=== PATIENT | male | born 1960 | race Caucasian/White ===

== ENCOUNTER 2020-02-08 08:23 | Outpatient (CLI) | payer OTHER, SELFPAY ==
[2020-02-08 09:16] LABS: Alanine Aminotransferase 25 U/L (4-50); Albumin Level 4.3 g/dL (3.5-5.1); Alkaline Phosphatase 39 U/L (38-126); Anion Gap 7 mmol/L (8-16); Aspartate Amino Transferase 23 U/L (17-59); Bilirubin,Total 1.2 mg/dL (0.2-1.3); Blood Urea Nitrogen 15 mg/dL (9-20); Calcium 9.1 mg/dL (8.4-10.2); Carbon Dioxide 27 mmol/L (22-30); Chloride 104 mmol/L (98-107); Cholesterol 169 mg/dL (0-200); Estimated Glomerular Filt Rate > 60; Glucose 106 mg/dL (75-110); HDL Direct 56 mg/dL; Potassium 4.5 mmol/L (3.4-5.0); Sodium 138 mmol/L (137-145); Triglycerides 139 mg/dL (<150)
[2020-02-08 09:28] LABS: LDL Cholesterol Direct 99 mg/dL
[2020-02-08 09:46] LABS: Prostate Specific Antigen 0.7 ng/mL (< OR = 4.0)
== END 2020-02-08 08:24 | disposition home or self-care (01) ==
LOC: ANHLAB 08:25
PROVIDERS: PCP Emergency Medicine; Visit Provider Emergency Medicine
DX: E78.5 Hyperlipidemia, unspecified (principal); Z12.5 Encounter for screening for malignant neoplasm of prostate
CPT/HCPCS: 36415; 80053; 80061; 84153

== ENCOUNTER 2020-08-08 08:08 | Outpatient (CLI) | payer OTHER, SELFPAY ==
[2020-08-08 08:41] LABS: Alanine Aminotransferase 21 U/L (4-50); Albumin Level 4.2 g/dL (3.5-5.1); Alkaline Phosphatase 38 U/L (38-126); Anion Gap 5 mmol/L (8-16); Aspartate Amino Transferase 26 U/L (17-59); Bilirubin,Total 1.5 mg/dL (0.2-1.3); Blood Urea Nitrogen 16 mg/dL (9-20); Carbon Dioxide 28 mmol/L (22-30); Chloride 106 mmol/L (98-107); Cholesterol 147 mg/dL (0-200); Estimated Glomerular Filt Rate > 60; Glucose 94 mg/dL (75-110); HDL Direct 49 mg/dL; Potassium 3.8 mmol/L (3.4-5.0); Sodium 139 mmol/L (137-145); Triglycerides 56 mg/dL (<150)
[2020-08-08 08:52] LABS: LDL Cholesterol Direct 80 mg/dL
== END 2020-08-08 08:09 | disposition home or self-care (01) ==
PROVIDERS: PCP Emergency Medicine; Visit Provider Emergency Medicine
DX: E78.5 Hyperlipidemia, unspecified (principal)
CPT/HCPCS: 36415; 80053; 80061

== ENCOUNTER 2022-08-20 01:49 | Day surgery (SDC) | payer OTHER, SELFPAY ==
[2022-08-09 14:47] VITALS: BMI 30.5
--- NOTE | 2022-08-20 09:06 | P.PNAN_ITS ---
Anes - Initial Pre Proc Eval Procedure: Operation Date: 08/20/22 10:30 Proposed Procedures p Screening Colonoscopy - Austin Chiu MD Date/Time: 08/20/22 09:06 Surgeon: Austin Chiu MD Pre Op Diagnosis: Neoplasm screening Patient Data Age: 62 Gender: M Height: 1.85 m Weight: 105 kg Allergies Allergy/AdvReac Type Severity Reaction Status Date / Time No Known Allergies Allergy Mild Verified 08/20/22 09:48 Home Medications Medication Instructions Recorded Confirmed Type losartan 50 mg tablet 50 mg PO DAILY #90 tabs 06/25/22 08/09/22 Rx fluticasone propionate 50 1 spray intranasal BID #16 grams 08/13/22 08/20/22 Rx mcg/actuation nasal spray,suspension (Flonase Allergy Relief) methylprednisolone 4 mg tablets in See Rx Instructions PO PER PKG DIR 08/13/22 08/20/22 Rx a dose pack (Medrol (Vineet)) #21 ea simvastatin 10 mg tablet See Rx Instructions .Route 08/17/22 08/20/22 Rx .COMPLEX #90 tabs Patient hx anesthesia problems: none Family hx anesthesia problems: none Results Review: All pre-operative results and documents have been reviewed as part of the pre- operative evaluation. [facility] Past Medical History Medical History (Updated 08/20/22 @ 09:06 by Dominic Alvarado DO) HTN (hypertension) Hyperlipidemia Weight loss counseling, encounter for Family History Family History Father Diabetes mellitus Asthma Sibling Family history of cardiovascular disease Social History Social History Smoking status: Light tobacco smoker Tobacco type: cigars Additional smoking assessment comments: cigar once in a while Alcohol intake: current Alcohol use details: on occasion Substance use: never Substance use type: does not use Living arrangements: with family Spiritual care concerns: No Anes - Eval Final PreProcedure Day of Procedure 08/20/22 09:06 Patient weight: obese Heart: regular rate and rhythm Lungs: clear to auscultation Airway: Mallampati scale class II Neurological: alert and oriented Last oral intake: >/= 8 hours ASA classification: III Emergent: no Anesthetic plan: proceed Anesthesia type and monitoring: general GIVS and standard monitoring Results Review: All pre-operative results and documents have been reviewed as part of the pre- operative evaluation. Informed Consent: The patient's anesthetic plan and its attendant risks and benefits were discussed with the patient/family/POA. Questions were solicited and answers provided to the satisfaction of the patient/family/POA.
[2022-08-20 09:51] VITALS: BP 118/99; PULSE 60; RESP 20; TEMP 36.5; O2SAT 99; BMI 30.3
[2022-08-20] MEDS: LACTATED RINGERS 1,000 ML 150 ML IV CONT (09:58)
--- NOTE | 2022-08-20 10:37 | PM.HPGS ---
History of Present Illness History of Present Illness Consent: Risks, benefits, and alternatives have been discussed and questions answered. Patient agrees to proceed with procedure. Chief complaint: Neoplasm screening Narrative: Miguel Abraham is a 62 year old male Presents for screening colonoscopy. Patient's current weight appetite and bowel movements are normal. Patient denies abdominal pain. Patient has has had no bleeding. Family history noncontributory. Previous colonoscopy 10 years ago was unremarkable. Review of Systems Review of Systems: Review of systems noncontributory. [facility], [facility] Past Medical History Medical History (Updated 08/20/22 @ 10:38 by Austin Chiu MD) HTN (hypertension) Hyperlipidemia Weight loss counseling, encounter for Family History Family History Father Diabetes mellitus Asthma Sibling Family history of cardiovascular disease Social History Social History Smoking status: Light tobacco smoker Tobacco type: cigars Additional smoking assessment comments: cigar once in a while Alcohol intake: current Alcohol use details: on occasion Substance use: never Substance use type: does not use Living arrangements: with family Spiritual care concerns: No Meds Home Medications and Allergies Home Medications Medication Instructions Recorded Confirmed Type losartan 50 mg tablet 50 mg PO DAILY #90 tabs 06/25/22 08/09/22 Rx fluticasone propionate 50 1 spray intranasal BID #16 grams 08/13/22 08/20/22 Rx mcg/actuation nasal spray,suspension (Flonase Allergy Relief) methylprednisolone 4 mg tablets in See Rx Instructions PO PER PKG DIR 08/13/22 08/20/22 Rx a dose pack (Medrol (Vineet)) #21 ea simvastatin 10 mg tablet See Rx Instructions .Route 08/17/22 08/20/22 Rx .COMPLEX #90 tabs Allergies Allergy/AdvReac Type Severity Reaction Status Date / Time No Known Allergies Allergy Mild Verified 08/20/22 09:48 Vital Signs Vital Signs - 24 hr 08/20/22 09:51 Temperature 97.7 F Pulse Rate 60 Respiratory Rate 20 Blood Pressure 118/99 H Pulse Oximetry 99 Oxygen Delivery Room Air Exam Narrative: Physical exam reveals patient to be alert. Vital signs stable. HEENT exam is unremarkable. Patient is anicteric. Lungs are clear to auscultation and percussion. Heart is without murmur or extra sounds. Abdomen bowel sounds are present soft nontender with no organomegaly. Digital external rectal exam is normal. Assessment and Plan Assessment and plan (1) Encounter for screening colonoscopy: Code(s): Z12.11 - Encounter for screening for malignant neoplasm of colon Status: Acute Assessment and Plan: Patient presents today for screening colonoscopy. He appears to be at average risk for colon polyps. Further recommendations will be given after endoscopy.
[2022-08-20 11:02] VITALS: BP 103/72; PULSE 71; RESP 22; O2SAT 96
[2022-08-20 11:12] VITALS: BP 106/71; PULSE 65; RESP 23; O2SAT 98
[2022-08-20 11:22] VITALS: BP 118/78; PULSE 64; RESP 22; O2SAT 99
== END 2022-08-20 11:25 | disposition home or self-care (01) ==
PROVIDERS: PCP Emergency Medicine; Visit Provider Internal Medicine Gastroenterology
PROC: 0DJD8ZZ Inspection of Lower Intestinal Tract, Via Natural or Artificial Opening Endoscopic (ICD-10-PCS; CPT 45378; principal; 2022-08-20 10:30)
DX: Z12.11 Encounter for screening for malignant neoplasm of colon (principal); K64.8 Other hemorrhoids; K57.30 Diverticulosis of large intestine without perforation or abscess without bleeding; I10 Essential (primary) hypertension; E78.5 Hyperlipidemia, unspecified; Z72.0 Tobacco use; E66.9 Obesity, unspecified; Z68.30 Body mass index [BMI] 30.0-30.9, adult
CPT/HCPCS: 45378; J2704; J7120

== ENCOUNTER → 2022-09-03 08:14 | Outpatient (CLI) | payer OTHER, SELFPAY ==
--- NOTE | ~2022-09-03 | CT_ITS ---
EXAMINATION: CT sinus wo con DATE: 09/03/2022 08:29 INDICATION: Nasal congestion and drainage. TECHNIQUE: Computed tomography (CT) of the paranasal sinuses was performed without intravenous contra st. Iterative reconstruction technique was employed. The dose-length product was 421.74 mGy-cm. COMPARISON: None FINDINGS: There is complete opacification of right frontal recess and near complete opacification of left frontal recess. There is moderate mucosal thickening in the ethmoid sinuses and sphenoid sinus. There is mild mucosal thickening in the maxillary sinuses. The ostiomeatal units are patent. There is rightward deviation of the nasal septum. IMPRESSION: 1. Mucosal thickening in the paranasal sinuses. 2. Rightward deviation of the nasal septum. Reviewed, dictated and finalized at location A.
== END ==
PROVIDERS: PCP Emergency Medicine; Visit Provider Emergency Medicine
DX: R09.81 Nasal congestion (principal); J34.2 Deviated nasal septum
CPT/HCPCS: 70486

== ENCOUNTER → 2022-11-15 12:06 | Outpatient (CLI) | payer OTHER, SELFPAY ==
--- NOTE | ~2022-11-15 | XR_ITS ---
Clinical Indication: Cough PA and lateral views of the chest: Comparison: None Findings: The lungs are clear, without evidence of focal consolidation or pleural effusion. Cardiome diastinal silhouette is within normal limits. Bones and soft tissues are unremarkable. Impression: Normal chest. Reviewed, dictated and finalized at location . Impression: Normal chest.
== END ==
PROVIDERS: PCP Emergency Medicine; Visit Provider Emergency Medicine
DX: R06.02 Shortness of breath (principal); R06.2 Wheezing; R09.89 Other specified symptoms and signs involving the circulatory and respiratory systems; R05.3 Chronic cough
CPT/HCPCS: 71046

== ENCOUNTER 2024-01-13 07:46 | Outpatient (CLI) | payer OTHER, SELFPAY | END 2024-01-13 07:47 | disposition home or self-care (01) | LOC: ANHAUDASC 07:47 | PROVIDERS: PCP Emergency Medicine; Visit Provider Otolaryngology | DX: H69.93 Unspecified Eustachian tube disorder, bilateral (principal) | CPT/HCPCS: 92557; 92567 ==